=== PATIENT | female | born 1985 | race Caucasian/White ===

== ENCOUNTER 2019-12-13 22:09 | Emergency (ER) | payer OTHER, SELFPAY ==
[2019-12-13 22:19] VITALS: BP 134/100; PULSE 76; RESP 16; TEMP 36.8; O2SAT 99; BMI 31.4
--- NOTE | 2019-12-13 23:25 | ED_ITS ---
HPI - Wound/Laceration General Chief Complaint: Wound/Laceration Stated Complaint: Stubbed pinky toe Source: patient and EMS Mode of arrival: EMS History of Present Illness HPI narrative: 34-year-old woman who was getting ready for bed head and caught her right small toe on the edge of a corner. Initially it was quite painful but she did not think much of it. Once in bed she noticed bleeding and decided to drive to the emergency room for further evaluation. She found that the wound was so tender she was unable to depress the gas pedal so she ended up calling 911 for assistance. Related Data Allergies Allergy/AdvReac Type Severity Reaction Status Date / Time No Known Drug Allergies Allergy Verified 12/13/19 22:19 Review of Systems Review of Systems Narrative: Pertinent positive and negative findings as per HPI Remainder of review of systems is otherwise unremarkable for Constitutional: Fevers, chills, weakness ENT: No sore throat, neck pain, ear pain CV: Chest pain, palpitations, dyspnea on exertion Respiratory: Cough, wheeze, dyspnea GI: Nausea, vomiting, diarrhea, change in bowel habits, black or bloody stools : Dysuria, hematuria, flank pain MS: Muscle weakness, numbness, joint swelling or warmth Patient History Social History Smoking Status: Never smoker Smoking Status: Never smoker Alcohol type: hard liquor Substance Use Type: does not use Exam Narrative Exam Narrative: General: Alert appropriate in no acute distress Respiratory: Able to speak in full sentences, no obvious respiratory distress Skin: No obvious rashes, warm and dry Neurologic: Grossly intact no obvious asymmetries or abnormalities Psych, appropriate insight and affect, cooperative Extremity: Minor separation of the skin fold under the right small toe. There is no significant abrasions or contusions to the toe itself or the midfoot. No evidence of fracture or dislocation on physical exam. Initial Vital Signs Initial Vital Signs: Vital Signs Temperature 98.3 F 12/13/19 22:19 Pulse Rate 76 12/13/19 22:19 Respiratory Rate 16 12/13/19 22:19 Blood Pressure 134/100 H 12/13/19 22:19 Pulse Oximetry 99 12/13/19 22:19 Course Orders Ordered: Discontinued Medications Bacitracin (Bacitracin) 1 applic TOP NOW ONE Stop: 12/13/19 23:05 Vital Signs Vital signs: Vital Signs - 8 hr 12/13/19 22:19 Temperature 98.3 F Pulse Rate 76 Respiratory Rate 16 Blood Pressure 134/100 H Pulse Oximetry 99 MDM - Wound/Laceration MDM Narrative Medical decision making narrative: 34-year-old woman who stubbed her toe enough that the skin split slightly underneath the toe causing enough bleeding that she was concerned. On physical exam there is no obvious evidence of fracture. We shared decision making, knowing that results would not change recommendations, we opted to not x-ray the foot or toe at this time. Wound care is discussed. Small splint/dressing is placed for comfort. She is safe for home discharge Discharge Plan Departure Patient Disposition: Home Clinical Impression: Laceration Contusion of fifth toe of right foot Qualifiers: Encounter type: initial encounter Qualified Code(s): S90.121A - Contusion of right lesser toe(s) without damage to nail, initial encounter Instructions: DI for Minor Laceration Activity Restrictions/Additional Instructions: Thank you for coming in [facility] that this injury hurt so much. There is a very small cut in the skin c rease under your pinky toe. This will heal nicely without any stitches. I would recommend using antibiotic ointment for the next couple of days along with a dressing to that site. I have given you a small splint that can help stabilize the pinky toe so it is not quite so painful as it heals. Because you walk all day and it was such a painful injury I am going to suggest that you do not work tomorrow. After that you are free to return to activities as your pain allows. Walking on the wound will not make it worse, it will just hurt. I hope you heal quickly Stand Alone Forms: Work Release Note
== END 2019-12-13 23:18 | disposition home or self-care (01) ==
PROVIDERS: Emergency Provider Emergency Medicine
DX: S90.121A Contusion of right lesser toe(s) without damage to nail, initial encounter (principal); S91.114A Laceration without foreign body of right lesser toe(s) without damage to nail, initial encounter; W22.03XA Walked into furniture, initial encounter
CPT/HCPCS: 99281